=== PATIENT | male | born 1975 | race Caucasian/White ===

== ENCOUNTER → 2023-08-20 | Outpatient (CLI) | payer BC ==
--- NOTE | 2023-08-20 16:30 | P.SLEEP ---
History of Present Illness DATE: 08/20/2023 CONSULTATION/NEW PATIENT EVALUATION HISTORY OF PRESENT ILLNESS/SLEEP-WAKE EVALUATION: 48-year-old gentleman had been evaluated in the sleep center for obstructive sleep apnea hypopnea syndrome. Patient has been diagnosed with severe obstructive sleep apnea hypopnea syndrome according to patient in another institution in August 2022. Patient was not able to use CPAP equipment. I checked CPAP unit range of the pressure 5-15, average pressure 8.7, leak is 30 L/m, apnea-hypopnea index reading 3.8. Patient use it for a few days about 1 year ago SLEEP SCHEDULE: Usually sleep schedule from 12 noon until 10 PM during working days, patient works at shift leader. During days off he sleeps from 11 PM until 9 AM. FALLING ASLEEP: No problems with falling asleep. DURING SLEEP: Patient has loud snoring, awakenings from sleep up to 4 times with 2 episodes of nocturia. Positive history of stop breathing during the sleep, choking, gasping for air, grinding teeth, dry mouth, heartburn and sweating No history of hypnogogical hallucinations, sleep paralysis, or cataplexy. DURING THE DAY/WAKE STATE: In the morning patient wake up tired. Cassatt sleepiness scale is increased to 11. Patient may take 1 nap in the evening. PAST MEDICAL HISTORY: Hypothyroidism. PAST SURGICAL HISTORY: Bilateral hernia repair. MEDICATIONS: Levothyroxine 175 g once a day, zolpidem. SOCIAL HISTORY: Positive history of smoking for about 5 pack years, quit, alcohol consumption occasional. FAMILY HISTORY: Asthma, acid reflux. REVIEW OF SYSTEMS: Snoring, multiple awakenings from sleep, sleepiness during the day. No fevers. No double vision. No recent chest pain. No shortness of breath. No abdominal pain. No bleeding episodes. No blood in urine. No seizure episodes. PHYSICAL EXAMINATION: GENERAL: A pleasant patient without any distress. VITAL SIGNS: BP 156/114 , HR 83 , RR 18 , weight 178.8 pounds, height 5 foot 6.5 inches, body mass index 28.1 . HEENT: PERRLA, EOMI. Evaluation of oropharynx showed tongue protrudes midline, low position of soft palate Mallampati 3. NECK: Supple. No JVD. Thyroid is not palpable. 16-1/3 inches in circumference. LUNGS: Clear to percussion and to auscultation. Good air exchange. No wheezing or rhonchi. HEART: S1, S2 regular. No murmurs, gallops or rubs. ABDOMEN: Soft and nontender. Bowel sounds are present. No organomegaly appreciated. EXTREMITIES: No clubbing or cyanosis. TOLL MECHANIC: Awake, alert, and oriented x3. Cranial nerves 2 to 7 intact. There is no fasciculation or atrophy noted. No focal deficits observed. ASSESSMENT: 1. Loud snoring, multiple awakenings from sleep with gasping for air and choking, low position of soft palate Mallampati 3, sleepiness Cassatt Sleepiness Scale is 11. Obstructive sleep apnea hypopnea syndrome diagnosed in another institution in severe range according to patient. Patient was not able to use CPAP equipment because of difficulties with the pressure. 2. Hypothyroidism. 3. Hypertension in the office today. 4. Status post bilateral hernia repair. 5 history of acid reflux. 6 . History of asthma. PLAN: 1. To get results of previous sleep studies from [facility]. 2. I made adjustments for CPAP unit: Changed range of the pressure to 4-10 centimeters of water, EPR from 0 increased to 3, humidity from one increased to 4, starting pressure Ramp decreased to 4 cm of water, Ramp to auto regimen. Patient should continue to use CPAP equipment every night for the whole night. 3. Preferable position during sleep on the side. 4. No driving if patient feels any sleepiness. Patient is aware of civil and criminal liability for unsafe driving. 5. Sleep hygiene with regular sleep time for at least 7.5-8 hours. 6. Watching weight. 7. Follow-up visit in 2 months. Thank you very much for referring this patient for consultation. Sincerely, Long Jeffery MD, PhD, FAASM. Diplomat of [place] [employer], Sleep Medicine Board by [place] [employer] [place] [employer] [facility] Sleep Note - Sleep Note Sleep Note: Temperature: Pulse Rate: Respiratory Rate: Blood Pressure: SpO2: Height: Weight: BMI: Neck Circumference:
== END ==
LOC: 3 N SLEEP 14:27
PROVIDERS: ATTEND Internal Medicine
DX: G47.33 Obstructive sleep apnea (adult) (pediatric) (principal); E03.9 Hypothyroidism, unspecified; I10 Essential (primary) hypertension; K21.9 Gastro-esophageal reflux disease without esophagitis; J45.909 Unspecified asthma, uncomplicated; Z98.890 Other specified postprocedural states; Z99.89 Dependence on other enabling machines and devices; Z79.890 Hormone replacement therapy; Z87.891 Personal history of nicotine dependence
CPT/HCPCS: 99202